=== PATIENT | male | born 1985 | race Caucasian/White ===

== ENCOUNTER 2017-07-19 17:36 | Emergency (ER) | payer SELFPAY ==
[~2017-07-19] VITALS: Ht 172.7 cm; Wt 86.0 kg
[2017-07-19 17:42] VITALS: BP 142/78; PULSE 90; RESP 12; TEMP 98.2; O2SAT 99
[2017-07-19] MEDS ORDERED: MESA400C PO (18:03)
[2017-07-19] MEDS ORDERED: GABA600T PO (18:03)
[2017-07-19] MEDS ORDERED: HYDR-3133 PO (18:35)
[2017-07-19] MEDS ORDERED: BACT800T5 PO (18:35)
[2017-07-19] MEDS ORDERED: CEPH-460 PO (18:35)
--- NOTE | 2017-07-19 18:37 | PD ---
HPI Chief Complaint: Skin Problem Time Seen by Provider: 18:09 Travel History International Travel<30 days: No Contact w/Intl Traveler<30days: No Traveled to known affect area: No History of Present Illness HPI 31-year-old male patient presents emergency department for evaluation of abscess to his right butt cheek. Patient states he first noticed it a couple days ago. He had an abscess approximately year ago in the same location and he lanced it himself at home. Patient states he has not had a problem with it since that time until a couple days ago. Patient states the abscess is draining purulent fluid. He denies any fever, chills, malaise, chest pain, shortness breath, abdominal pain, nausea, vomiting, diarrhea, dysuria, hematuria. He is visiting [place] from [place] with his family the holidays. PFSH Past Medical History Gastrointestinal Disorders: Yes (chrohns) Influenza Vaccination: No Past Surgical History Surgical History: No Previous Surgery Social History Alcohol Use: Yes (occas) Tobacco Use: Yes Substance Use: No Allergies-Medications (Allergen,Severity, Reaction): Coded Allergies: No Known Allergies (Unverified , 07/19/17) Reported Meds & Prescriptions Reported Meds & Active Scripts Active Hydroxyzine HCl 25 Mg Tab 25 Mg PO BID PRN Keflex (Cephalexin) 500 Mg Capsule 500 Mg PO Q6H 10 Days Bactrim DS (Sulfamethoxazole-Trimethoprim) 800-160 Mg Tab 1 Tab PO BID 10 Days Reported Gabapentin 600 Mg Tab 1,200 Mg PO TID Delzicol (Mesalamine) 400 Mg Cap.drtab. 800 Mg PO BID Review of Systems Except as stated in HPI: all other systems reviewed are Neg Physical Exam Narrative GENERAL: Well-nourished, well-developed 31-year-old male patient in no acute distress. Nontoxic appearing. SKIN: There is an area in the right buttock which measures about 0.5 cm in diameter that is draining small amount of purulent drainage and surrounded by larger area of erythema measuring about 3cm in diameter. HEAD: Normocephalic. Atraumatic. EYES: No scleral icterus. No injection or drainage. NECK: Supple, trachea midline. No JVD or lymphadenopathy. CARDIOVASCULAR: Regular rate and rhythm without murmurs, gallops, or rubs. RESPIRATORY: Breath sounds equal bilaterally. No accessory muscle use. GASTROINTESTINAL: Abdomen soft, non-tender, nondistended. MUSCULOSKELETAL: No cyanosis, or edema. BACK: Nontender without obvious deformity. No CVA tenderness. Data Data Last Documented VS Vital Signs Date Time Temp Pulse Resp B/P (MAP) Pulse Ox O2 Delivery O2 Flow Rate FiO2 07/19/17 18:57 07/19/17 17:42 98.2 90 12 99 Orders Orders Ed Discharge Order (07/19/17 18:38) MDM Medical Decision Making Medical Screen Exam Complete: Yes Emergency Medical Condition: Yes Differential Diagnosis Differential diagnoses include but are not limited to abscess, cellulitis, folliculitis Narrative Course Upon physical assessment it was noted that the area of concern was already draining. I&D is not indicated at this time. Patient discharged home with instructions to use warm moist compress to continue to facilitate draining and given a prescription for Bactrim and Keflex. Patient is visiting [place] from [place]. Patient instructed to return to the emergency department for abscess recheck or follow up with his primary care when he gets home. Patient instructed to return the emergency Department immediately with any worsening condition, signs of increasing infection such as fever, chills, increasing redness or increasing pain and purulent discharge. Patient requests medication to help him on the flight. He states he had an anxiety attack on his flight to [place]. Patient given a prescription for hydralazine. Patient discharged home at this time. Diagnosis Primary Impression: Abscess Referrals: Primary Care Physician Patient Instructions: Abscess (ED), General Instructions Additional Instructions: Please return to emergency department if your symptoms return or worsen. Follow up with your primary care provider. Take medications as prescribed. Bactrim is free of [employer]. Use warm moist compress to the area 3-4 times a day to facilitate drainage. Keep area clean and dry. Med/Other Pt SpecificInfo: Prescription(s) given Scripts Hydroxyzine HCl (Hydroxyzine HCl) 25 Mg Tab 25 MG PO BID Y for ANXIETY, #2 TAB 0 Refills Prov: Fernanda Ramirez 07/19/17 Cephalexin (Keflex) 500 Mg Capsule 500 MG PO Q6H for Infection for 10 Days, #40 CAP 0 Refills Prov: Fernanda Ramirez 07/19/17 Sulfamethoxazole-Trimethoprim (Bactrim DS) 800-160 Mg Tab 1 TAB PO BID for Infection for 10 Days, #20 TAB 0 Refills Prov: Fernanda Ramirez 07/19/17 Disposition: 01 DISCHARGE HOME Condition: Stable Fernanda Ramirez Jul 19, 2017 18:37
== END 2017-07-19 19:04 | disposition home or self-care (01) ==
LOC: NEPC 17:36
DX: L02.31 Cutaneous abscess of buttock (principal); Z72.0 Tobacco use
CPT/HCPCS: 99284